=== PATIENT | female | born 1955 | race Caucasian/White ===

== ENCOUNTER 2016-12-16 18:46 | Observation (INO) ==
--- NOTE | 2016-12-16 18:50 | Emergency Department Note ---
Disposition Clinical Impression: Chest pain, HTN (hypertension), HLD (hyperlipidemia), COPD (chronic obstructive pulmonary disease), Smoker, Family history of coronary arteriosclerosis, Frail elderly, Headache Disposition: Admitted As Inpatient Condition: Good Referrals: NO,PCP [Non-Partnered Physician] - Forms: ED Satisfaction Letter General Adult HPI - General Chief complaint: ED Chest Pain Stated complaint: CP Time Seen by Provider: 12/16/16 18:48 - History of Present Illness HPI Narrative: 61-year-old female reports emergency department complaining of chest pain. It radiates into her neck and back. She has no personal history of CAD, her last stress test was 15 years ago. The patient has no history of aneurysm DVT PE or cancer. She has COPD, she has a chronic cough. She recently had a cholecystectomy about 3 months ago. There is no history of vomiting or bloody stool, the patient describes some midepigastric discomfort. The patient has had no coldness blueness numbness or weakness in arms or legs. She reports she sees Dr. Ferreira auto mechanics instructor who she stes has recommended a stress test within the month. The patient states that she has had some arrhythmia but is unable to describe the specific type. She is currently not anticoagulated. There have been no strokelike symptoms. No unilateral arm or leg weakness or numbness. There is no history of slurred speech or facial droop or confusion no seizure-like activity fever rash or trauma. The patient has a history of pneumonitis, her last episode was 18 months ago. The patient denies anxiety. She reports that she has been having intermittent pain for the last 5 days. She was brought in by EMS for further evaluation. She has a history of hypertension, hyperlipidemia, a strong family history of coronary artery disease , she is a smoker. The patient has chronic back pain, and reports to the ED stating it is time to take her usual narcotic pain medication for her chronic long-standing back pain. - Related Data Home Medications Medication Instructions Recorded Confirmed Calcium Carb, Citrate/Vit D3 1 tab PO BID 04/26/16 04/26/16 [Calcium + D3 ER Tablet] Lansoprazole [Prevacid] 30 mg PO QAM 04/26/16 04/26/16 Metoprolol [Lopressor] 25 mg PO BID 04/26/16 04/26/16 Sertraline [Zoloft] 150 mg PO QAM 04/26/16 04/26/16 Simvastatin [Zocor] 40 mg PO QPM 04/26/16 04/26/16 Albuterol Inhaler 09/27/16 Previous Rx's Medication Instructions Recorded HYDROcodone/Acet 5/325 mg [[place] 1 tab PO BID PRN #36 tablet 04/27/16 5-325 mg] Levofloxacin [Levaquin] 500 mg PO DAILY #10 tablet 09/27/16 Allergies Allergy/AdvReac Type Severity Reaction Status Date / Time No Known Allergies Allergy Verified 09/27/16 17:53 All systems ED: reviewed and negative except as stated. Past Medical History - Past Medical History Medical history: Reports: hyperlipidemia, hypertension Psychiatric history: Reports: anxiety, depression - Social History Smoking Status: Current every day smoker Smokeless Tobacco Status: No Alcohol use: Reports: none Drug use: Reports: none Physical Exam - General Limitations: no limitations General appearance: alert, in no apparent distress - Head Head exam: atraumatic, normocephalic, normal inspection - Eye Eye exam: Present: normal appearance, PERRL, EOMI - ENT ENT exam: normal exam, normal oropharynx, mucous membranes moist, TM's normal bilaterally, normal external ear exam - Neck Neck exam: Present: normal inspection, full ROM, trachea midline. Absent: tenderness, meningismus - Chest Chest inspection: Present: normal inspection, symmetric chest wall rise. Absent : tenderness - Respiratory Respiratory exam: Present: normal lung sounds bilaterally. Absent: respiratory distress, wheezes, stridor, accessory muscle use, prolonged expiratory phase - Cardiovascular Cardiovascular exam: Present: regular rate, normal rhythm, normal heart sounds - Abdominal Exam Abdominal exam: Present: soft, Non-Tender, normal bowel sounds. Absent: tenderness, distention, guarding, rebound, rigidity, pulsatile mass - Extremities Exam Extremities exam: Present: normal inspection, full ROM, normal capillary refill. Absent: tenderness, pedal edema, joint swelling, calf tenderness - Expanded Lower Extremity Exam Lower leg exam: Absent: Homans' sign Neurovascular/Tendon exam: Present: normal capillary refill. Absent: pulse deficit, motor deficit, sensory deficit, tendon deficit, extremity cold to touch , pallor - Back Exam Back exam: Present: normal inspection, full ROM. Absent: tenderness, CVA tenderness (R), CVA tenderness (L), vertebral tenderness - Neurological Exam Neurological exam: Present: alert, oriented X3, CN II-XII intact. Absent: motor sensory deficit - Psychiatric Psychiatric exam: Present: normal affect, normal mood - Skin Skin exam: Present: warm, dry, intact, normal color. Absent: rash, cyanosis, diaphoresis, erythema, pallor, mottled Course Vital Signs Temperature 98.3 F 12/16/16 18:48 Pulse Rate 65 12/16/16 18:48 Respiratory Rate 16 12/16/16 18:48 Blood Pressure 148/83 12/16/16 18:48 O2 Sat by Pulse Oximetry 96 12/16/16 18:48 Temperature 98.3 F 12/16/16 18:48 Pulse Rate 85 12/16/16 20:10 Respiratory Rate 16 12/16/16 20:10 Blood Pressure 154/80 12/16/16 20:10 O2 Sat by Pulse Oximetry 96 12/16/16 20:10 Oxygen Delivery Oxygen Delivery Room Air Medical Decision Making - MDM Narrative Medical decision making narrative: The patient is describing chest pain which radiates the back and neck. She is 61 years old, a smoker, has a history of hypertension hypercholesterolemia with a family history of coronary disease, she states that her personal auto mechanics instructor as recommended a stress test within the next month. The patient presents with acute chest pain, aspirin was ordered. She also complained of a generalized headache, no focal neurologic defects noted. The patient has no personal history of intracranial aneurysm mass or tumor. No trauma. No neurologic abnormalities on clinical examination. I do not suspect meningismus. Based on the patient's history, elevated heart score, with significant risk factors and chest pain, I thought it would be appropriate to admit the patient to the hospital. I discussed case with the hospitalist on-call who has acceptred the patient to their care. Currently pending admission. - Lab Data Lab results reviewed: Yes I reviewed the patient's lab results. Result diagrams: 12/16/16 19:05 12/16/16 19:05 Lab Results 12/16/16 12/16/16 12/16/16 Range/Units 19:05 19:05 19:05 WBC (4.3-11.1) K/mcL RBC (3.82-4.97) M/mcL Hgb (11.5-15.4) g/dL Hct (35.3-44.9) % MCV (83.0-100.0) fL MCH (28.0-33.3) pg MCHC (31.6-35.5) g/dL RDW (11.5-14.5) % Plt Count (140-400) K/mcL MPV (9.4-12.4) fL Immature Gran % (0-4) % Seg Neutrophils % % Lymphocytes % % Monocytes % % Eosinophils % % Basophils % % Neutrophils # (1.6-8.9) K/mcL Lymphocytes # (0.6-4.6) K/mcL Monocytes # (0.0-1.3) K/mcL Eosinophils # (0.0-0.6) K/mcL Basophils # (0.0-0.2) K/mcL Immature Plt Fraction (1.1-6.1) % PT 10.4 (9.4-12.1) Seconds INR 1.0 APTT 29.4 (26.0-36.0) Seconds Sodium 133 L (136-145) mEq/L Potassium 4.0 (3.5-4.5) mEq/L Chloride 99 (98-109) mEq/L Carbon Dioxide 24 (19-29) mEq/L BUN 6 L (7-20) mg/dL Creatinine 0.70 (0.57-1.11) mg/dL Est GFR ( Amer) > 60 (> 60) Est GFR (Non-Af Amer) > 60 (> 60) BUN/Creatinine Ratio 9 (6-26) Glucose 125 H (70-99) mg/dL Calculated Osmolality 275 L (280-300) Calcium 9.3 (8.6-10.8) mg/dL Total Bilirubin 0.3 (0.2-1.2) mg/dL Direct Bilirubin 0.1 (0.0-0.5) mg/dL Indirect Bilirubin 0.2 (0.0-1.2) mg/dL AST 13 (5-34) Units/L ALT 10 (0-55) Units/L Alkaline Phosphatase 59 (38-126) Units/L Troponin I (0-0.03) ng/mL C-Reactive Protein 2 (Less than 5) mg/L B-Natriuretic Peptide 59 (0-100) pg/mL Serum Total Protein 6.7 (6.0-8.3) g/dL Albumin 3.7 (3.5-5.0) g/dL Globulin 3.0 (2.4-3.5) g/dL Albumin/Globulin Ratio 1.2 (1.1-2.2) Lipase 21 (8-78) Units/L 12/16/16 12/16/16 Range/Units 19:05 19:05 WBC 10.3 (4.3-11.1) K/mcL RBC 4.83 (3.82-4.97) M/mcL Hgb 14.3 (11.5-15.4) g/dL Hct 42.6 (35.3-44.9) % MCV 88.2 (83.0-100.0) fL MCH 29.6 (28.0-33.3) pg MCHC 33.6 (31.6-35.5) g/dL RDW 12.7 (11.5-14.5) % Plt Count 216 (140-400) K/mcL MPV 10.7 (9.4-12.4) fL Immature Gran % 0.3 (0-4) % Seg Neutrophils % 75.5 % Lymphocytes % 19.0 % Monocytes % 4.2 % Eosinophils % 0.5 % Basophils % 0.5 % Neutrophils # 7.8 (1.6-8.9) K/mcL Lymphocytes # 2.0 (0.6-4.6) K/mcL Monocytes # 0.4 (0.0-1.3) K/mcL Eosinophils # 0.1 (0.0-0.6) K/mcL Basophils # 0.1 (0.0-0.2) K/mcL Immature Plt Fraction 7.7 H (1.1-6.1) % PT (9.4-12.1) Seconds INR APTT (26.0-36.0) Seconds Sodium (136-145) mEq/L Potassium (3.5-4.5) mEq/L Chloride (98-109) mEq/L Carbon Dioxide (19-29) mEq/L BUN (7-20) mg/dL Creatinine (0.57-1.11) mg/dL Est GFR ( Amer) (> 60) Est GFR (Non-Af Amer) (> 60) BUN/Creatinine Ratio (6-26) Glucose (70-99) mg/dL Calculated Osmolality (280-300) Calcium (8.6-10.8) mg/dL Total Bilirubin (0.2-1.2) mg/dL Direct Bilirubin (0.0-0.5) mg/dL Indirect Bilirubin (0.0-1.2) mg/dL AST (5-34) Units/L ALT (0-55) Units/L Alkaline Phosphatase (38-126) Units/L Troponin I 0.00 (0-0.03) ng/mL C-Reactive Protein (Less than 5) mg/L B-Natriuretic Peptide (0-100) pg/mL Serum Total Protein (6.0-8.3) g/dL Albumin (3.5-5.0) g/dL Globulin (2.4-3.5) g/dL Albumin/Globulin Ratio (1.1-2.2) Lipase (8-78) Units/L - Radiology Data Radiology results reviewed: Yes I reviewed the patient's radiology results.
[2016-12-16 19:13] LABS: Basophils # 0.1 K/mcL (0.0-0.2); Basophils % 0.5 %; Eosinophils # 0.1 K/mcL (0.0-0.6); Eosinophils % 0.5 %; Hematocrit 42.6 % (35.3-44.9); Hemoglobin 14.3 g/dL (11.5-15.4); Immature Granulocytes % 0.3 % (0-4); Immature Platelets 7.7 % (1.1-6.1); Mean Corpuscular HGB Conc 33.6 g/dL (31.6-35.5); Mean Corpuscular Hemoglobin 29.6 pg (28.0-33.3); Mean Corpuscular Volume 88.2 fL (83.0-100.0); Mean Platelet Volume 10.7 fL (9.4-12.4); Monocytes # 0.4 K/mcL (0.0-1.3); Monocytes % 4.2 %; Neutrophils # 7.8 K/mcL (1.6-8.9); Platelet Count 216 K/mcL (140-400); Red Blood Count 4.83 M/mcL (3.82-4.97); Red Cell Distribution Width 12.7 % (11.5-14.5); Segmented Neutrophils % 75.5 %
[2016-12-16 19:18] LABS: Prothrombin Time 10.4 Seconds (9.4-12.1)
[2016-12-16 19:21] LABS: Activated Partial Thrombo Time 29.4 Seconds (26.0-36.0)
[2016-12-16] MEDS ORDERED: *HR* HYDROcodone/Acet 5/325 mg TABLET PO ONE (19:24)
[2016-12-16] MEDS ORDERED: Aspirin 325 MG TABLET PO ONE (19:24)
[2016-12-16 19:26] LABS: Alanine Aminotransferase 10 Units/L (0-55); Albumin 3.7 g/dL (3.5-5.0); Albumin/Globulin Ratio 1.2 (1.1-2.2); Alkaline Phosphatase 59 Units/L (38-126); Aspartate Amino Transferase 13 Units/L (5-34); BUN/Creatinine Ratio 9 (6-26); Bilirubin,Direct 0.1 mg/dL (0.0-0.5); Bilirubin,Indirect 0.2 mg/dL (0.0-1.2); Bilirubin,Total 0.3 mg/dL (0.2-1.2); Blood Urea Nitrogen 6 mg/dL (7-20); Calcium 9.3 mg/dL (8.6-10.8); Carbon Dioxide 24 mEq/L (19-29); Chloride 99 mEq/L (98-109); Glucose 125 mg/dL (70-99); Lipase 21 Units/L (8-78); Osmolality,Calculated 275 (280-300); Sodium 133 mEq/L (136-145); Total Protein 6.7 g/dL (6.0-8.3); eGFR For African Americans > 60 (> 60); eGFR For Non-African Americans > 60 (> 60)
[2016-12-16 19:39] LABS: C-Reactive Protein 2 mg/L (Less than 5)
--- NOTE | 2016-12-17 00:08 | Internal Med History&Physical ---
Date of Encounter: 12/16/16 Time of Encounter: 23:51 Assessment and Plan (1) Chest pain Current visit: Yes Status: Acute currently reports that the chest pain has subsided. she took one nitro at home. first trop is negative, no ischemic EKG changes will trend trop, tele monitoring will order nuclear stress test for tomm morning. s/l NTG for chest pain prn. Qualifiers: Chest pain type: unspecified Qualified Code(s): R07.9 - Chest pain, unspecified (2) HTN (hypertension) Current visit: Yes Status: Acute BP stable, will continue home meds Qualifiers: Hypertension type: essential hypertension Qualified Code(s): I10 - Essential (primary) hypertension (3) HLD (hyperlipidemia) Current visit: Yes Status: Acute continue home meds. Qualifiers: Hyperlipidemia type: unspecified Qualified Code(s): E78.5 - Hyperlipidemia , unspecified (4) COPD (chronic obstructive pulmonary disease) Current visit: Yes Status: Acute not in exacerbation, continue home meds. Qualifiers: COPD type: unspecified COPD Qualified Code(s): J44.9 - Chronic obstructive pulmonary disease, unspecified (5) Smoker Current visit: Yes Status: Acute (6) Family history of coronary arteriosclerosis Current visit: Yes Status: Acute Internal Medicine - H&P: HPI Chief complaint: chest pain Admitted From: Home Plans for Post Hospital Care: Home History of present illness: Ms. Painter is a 61 year old female with c/o HTN, COPD presented with the c/o chest pain. She reports she sees Dr. Ferreira doctor of veterinary medicine who she states has recommended a stress test within the month. The patient states that she has had some arrhythmia but is unable to describe the specific type. She is currently not anticoagulated. She reports that she has been having intermittent pain for the last 5 days and is radiating to her left sided neck and jaw. She was brought in by EMS for further evaluation. She has a history of hypertension, hyperlipidemia, a strong family history of coronary artery disease , she is a smoker. The patient has chronic back pain, and reports to the ED stating it is time to take her usual narcotic pain medication for her chronic long-standing back pain. she denies ever having stress test or LHC. Past Med Surg Social Fam HX - Past Medical History Medical history: hyperlipidemia, hypertension, thyroid disease, other Psychiatric history: anxiety, depression - Past Surgical History Surgical History: cholecystectomy - Social History Smoking Status: Current every day smoker Packs per day: 0.25 Smokeless Tobacco Status: No Alcohol use: none Drug use: none - Family History Father Adopted: [place]: DAVINA Family Member Ethnicity: Non- Living Status: Age at : 62 Cause of : BRAIN CANCER Hx Family Cardiac Disorders: No Hx Family Respiratory Disorders: Yes Hx Family Cancer: Yes Hx Family GI Disorders: No Hx Family Genitourinary Disorders: No Hx Family Endocrine Disorder: No Hx Family Musculoskeletal Disorders: No Hx Family Neuromuscular Disorders: No Hx Family Neurologic Disorders: No Hx Family HEENT Disorders: No Hx Family Autoimmune Disorders: No Hx Family Reproductive Disorders: No Hx Family Psychosocial Disorders: No Hx Family Medical Disorders: No Internal Medicine - H&P: Meds Calcium Carb, Citrate/Vit D3 [Calcium + D3 ER Tablet] 1 tab PO BID 04/26/16 [ History] Metoprolol [Lopressor] 25 mg PO BID 04/26/16 [History] Sertraline [Zoloft] 150 mg PO QAM 04/26/16 [History] Simvastatin [Zocor] 40 mg PO QPM 04/26/16 [History] HYDROcodone/Acet 5/325 mg [[place] 5-325 mg] 1 tab PO BID PRN #36 tablet 04/27/16 [Rx] Albuterol Inhaler 09/27/16 [History] Gabapentin [Neurontin] 800 mg PO TID 12/16/16 [History] Omeprazole [PriLOSEC] 20 mg PO DAILY 12/16/16 [History] Allergies No Known Allergies Allergy (Verified 09/27/16 17:53) All Systems PM: A 10-system review of systems was performed and is negative for pertinent findings except as documented above in the HPI. - Constitutional Constitutional: as per HPI - EENT Eyes: as per HPI Ears: as per HPI Nose, mouth and throat: as per HPI - Breasts Breasts: as per HPI - Cardiovascular Cardiovascular ROS IM: as per HPI - Respiratory Respiratory: as per HPI - Gastrointestinal Gastrointestinal: as per HPI - Genitourinary Genitourinary: as per HPI - Constitutional Vitals: Temp Pulse Resp BP Pulse Ox 97.9 F 62 18 132/73 94 12/16/16 21:39 12/16/16 21:39 07/09/17 21:39 12/16/16 21:39 12/16/16 21:39 General appearance: Present: A&O X 3, no acute distress Exam: neck- supple chest- b/l clear, no added sounds CVS-s1 and s2, no mr/g/ abd-soft, non tender, bs are present ext- no edema neuro- alert and awake, no focal neuro deficits Internal Med - H&P Results - Labs CBC & Chem 7: 12/16/16 19:05 12/16/16 19:05
[2016-12-17] MEDS ORDERED: *HR* HYDROmorphone (PF) 1 MG/ML SYRINGE IVP PRN (00:12)
[2016-12-17] MEDS ORDERED: Naloxone 0.4 MG/ML INJ IVP PRN (00:12)
[2016-12-17] MEDS ORDERED: Ondansetron 4 MG/2 ML VIAL IVP PRN (00:12)
[2016-12-17] MEDS: *HR* HYDROcodone/Acet 5/325 mg TABLET PO PRN ×2 (00:28→10:09)
[2016-12-17] MEDS: Gabapentin 400 MG CAPSULE PO SCH ×3 (00:29→14:04)
[2016-12-17 01:35] LABS: Basophils # 0.1 K/mcL (0.0-0.2); Basophils % 0.5 %; Eosinophils % 0.2 %; Hemoglobin 13.8 g/dL (11.5-15.4); Immature Granulocytes % 0.2 % (0-4); Lymphocytes # 2.7 K/mcL (0.6-4.6); Lymphocytes % 27.8 %; Mean Corpuscular HGB Conc 34.5 g/dL (31.6-35.5); Mean Corpuscular Hemoglobin 30.7 pg (28.0-33.3); Mean Corpuscular Volume 88.9 fL (83.0-100.0); Mean Platelet Volume 10.5 fL (9.4-12.4); Monocytes # 0.5 K/mcL (0.0-1.3); Monocytes % 5.6 %; Neutrophils # 6.3 K/mcL (1.6-8.9); Platelet Count 193 K/mcL (140-400); Red Cell Distribution Width 12.7 % (11.5-14.5); Segmented Neutrophils % 65.7 %
[2016-12-17 01:48] LABS: BUN/Creatinine Ratio 10 (6-26); Blood Urea Nitrogen 7 mg/dL (7-20); Calcium 9.2 mg/dL (8.6-10.8); Carbon Dioxide 26 mEq/L (19-29); Chloride 101 mEq/L (98-109); Cholesterol 185 mg/dL (< 200); Glucose 93 mg/dL (70-99); HDL Cholesterol 39 mg/dL (40-59); Osmolality,Calculated 276 (280-300); Potassium 4.2 mEq/L (3.5-4.5); Sodium 134 mEq/L (136-145); Triglycerides 236 mg/dL (< 150); eGFR For African Americans > 60 (> 60); eGFR For Non-African Americans > 60 (> 60)
[2016-12-17 01:49] LABS: Chol/HDL Ratio 4.7 (0-4.9); LDL Cholesterol,Calculated 99 mg/dL (0-99)
[2016-12-17] MEDS ORDERED: Regadenoson 0.4 MG/5 ML SYRINGE IVP ONE (06:49)
--- NOTE | 2016-12-17 10:27 | Nuclear Medicine Stress Report ---
Regadenoson Nuclear Stress Name: Zoe Painter Date of Study: 12/17/2016 Date: 1955 Ht: 62.0 in Medical Record#: [id number] Age: 61 Wt: 156.0 lb Gender: Female Order #: [id number] Location: [facility] Room: [facility] Supervising Provider: Keith Arango CNP Reading Physician: Vincent Ferris DO, FACC, FASOK Ordering Physician: Bushra Bond CNP Primary Care Physician: Dana Goddard MD Stress Technologist: Maday Smith HEEL SHAVER, CCT Shelving Supervisor: Norma Corrales Indications: Chest Pain Impression: Pharmacologic stress ECG is non-diagnostic for ischemia due to baseline ST-T changes and submaximal HR. Gated EF = 72%. Perfusion imaging was negative for ischemia or infarct. History: Hypertension Hypercholesteremia History of Smoking Stress Test Summary: Stress Test Type: Pharmacologic Regadenoson 0.4mg/5ml given IV Baseline Information: Initial Heart Rate: 61 Blood Pressure: 134/68 Stress Information: Test Terminated Due to (primary): As per protocol Maximum Blood Pressure: 140/74 Maximum Heart Rate: 94 Percent Maximum Heart Rate Achieved: 60 Double Product: [id number] METS Reached: 1 Symptoms: NECK PAIN Nuclear Summary: SPECT myocardial perfusion imaging using Tc99m Sestamibi given intravenously was performed at rest and following cardiac stress testing. The resting images were obtained following initial dose of 10.8 mCi. Following stress an additional dose of 31.2 mCi was given at peak exercise or 30 seconds post regadenoson infusion. Medication Given: Time Medication Dose Units Route Findings: Stress Note * Resting ECG demonstrated normal sinus rhythm with nonspecific ST-T changes. * No baseline arrhythmias were noted. * Pharmacologic stress ECG is non-diagnostic for ischemia due to baseline ST-T changes and submaximal HR. * Occasional PVCs noted during stress. * Patient had no chest pain during stress. Hemodynamic responses * Normal hemodynamic responses to pharmacologic stress. Study Quality * Study quality is average. Gated EF % * Gated EF = 72%. Left Ventricle * The left ventricle is not dilated. * LVEDV = 57 mL. NORMALS * Normal wall motion. * Normal Segmental Perfusion in rest. * Normal segmental perfusion in stress. TID * No evidence of transient ischemic dilatation. TID ratio * TID ratio = 1.23. Lung Uptake * There is no evidence of increase lung uptake. Updated by Vinecnt Ferris DO, FACPetros, VIKASH, TODD on 12/17/2016 10:22:57 AM electronically signed on 12/17/2016 10:23:37 AM with status of Final
[2016-12-17 11:26] VITALS: BP 128/82
--- NOTE | 2016-12-17 12:26 | Electrocardiograph Report ---
[place] [address] Test Date: 2016-12-16 Pat Name: Zoe Painter Department: 104 Room: 3B48 Gender: F Senior Director Of Strategy: MIKEY : 1955 Requested By: Rajiv Lamb Order Number: [id number] Reading MD: José Turner MD Measurements Intervals [place] Rate: 67 P: 69 MN: 142 QRS: 38 QRSD: 73 T: 42 QT: 374 QTc: 389 Interpretive Statements SINUS RHYTHM Electronically Signed On 12-17-2016 12:25:17 EDT by José Turner MD
--- NOTE | 2016-12-17 14:40 | Discharge Summary ---
Date of Encounter: 12/17/16 Time of Encounter: 13:40 - Discharge Diagnosis (1) Chest pain Priority: Primary Status: Acute Comments: Patient reports and see departments with left neck and bilateral posterior neck pain and left jaw pain. She tells me that she did not have chest pain and does not understand why all of her cardiac testing was done. She was brought by EMS for further evaluation. She sees cardiology here at the hospital and states that they have recommended a stress test within the month. She says that she has had some arrhythmia, was unable to describe the specific type. She says if he she feels like her heart is missing some beats. She reports intermittent pain for the last 5 days. Troponins were negative, stress test was negative for acute infarct or ischemia. Her lungs are clear anteriorly and posteriorly, no wheezing, no rails , no stridor, no respiratory distress. Chest x-ray was negative for acute cardiopulmonary disease. She has no peripheral edema. I am listed as the ordering physician on the stress test, patient was admitted when I was not here, I did not order the test. I feel this pain is primarily musculoskeletal. Her neck pain increases with passive range of motion, and lower cervical vertebrae are tender to palpation. Patient's shoulders are also tender to palpation. Qualifiers: Chest pain type: unspecified Qualified Code(s): R07.9 - Chest pain, unspecified (2) HTN (hypertension) Priority: Secondary Status: Chronic Comments: Chronic. continue medications. Well-controlled in inpatient setting. Qualifiers: Hypertension type: essential hypertension Qualified Code(s): I10 - Essential (primary) hypertension (3) HLD (hyperlipidemia) Priority: Secondary Status: Chronic Comments: Continue home medications. Chronic. Qualifiers: Hyperlipidemia type: unspecified Qualified Code(s): E78.5 - Hyperlipidemia , unspecified (4) COPD (chronic obstructive pulmonary disease) Priority: Secondary Status: Chronic Comments: No acute exacerbation. Lungs are clear. Continue home medications. Qualifiers: COPD type: unspecified COPD Qualified Code(s): J44.9 - Chronic obstructive pulmonary disease, unspecified (5) Smoker Priority: Secondary Status: Chronic Comments: Patient states that she has decreased smoking from 2 packs a day to 5-6 cigarettes a day. She has agreed to take a prescription for Chantix for smoking cessation. We had a lengthy discussion about smoking cessation, lasting approximately 5 minutes. Male at bedside during discussion. - Discharge Medications Home Medications: Calcium Carb, Citrate/Vit D3 [Calcium + D3 ER Tablet] 1 tab PO BID 04/26/16 [ History] Metoprolol [Lopressor] 25 mg PO BID 04/26/16 [History] Sertraline [Zoloft] 150 mg PO QAM 04/26/16 [History] Simvastatin [Zocor] 40 mg PO QPM 04/26/16 [History] HYDROcodone/Acet 5/325 mg [[place] 5-325 mg] 1 tab PO BID PRN #36 tablet 04/27/16 [Rx] Albuterol Sulfate [Proair Hfa] 2 puff IH Q6H PRN 09/27/16 [History] Gabapentin [Neurontin] 800 mg PO TID 12/16/16 [History] Omeprazole [PriLOSEC] 20 mg PO DAILY 12/16/16 [History] Cholecalciferol (D-3) [Vitamin D] 1,000 unit PO DAILY 12/17/16 [History] Ranitidine HCl [Acid Plastic Mould Maker] 150 mg PO BID 12/17/16 [History] Tizanidine HCl 4 mg PO TID 12/17/16 [History] Allergies/Adverse Reactions: Allergies No Known Allergies Allergy (Verified 09/27/16 17:53) Procedures/tests Complete & Pending: Procedures Performed prior 72 hours Category Date Time Status NM norma perf SPECT multi [NM] Routine Exams 12/17/16 00:14 Taken SP pharm nuclear stress Routine Y 12/17/16 07:30 Completed Date of admission: 12/16/16 21:11 Primary care physician: Dana Goddard Discharging clinician: Bushra Bond Anticipated date of discharge: 12/17/16 - Patient Status Disposition: Home, Self-Care Overall status at discharge: patient is back to baseline - Discharge Instructions Follow Up With: Dana Goddard MD [Primary Care Provider] - 12/24/16 11:15 am Additional Instructions: Follow-up with primary care provider in the next 7-10 days for a follow-up appointment. Tylenol or Motrin for neck pain, heat, muscle rubs. Resume your normal home medications. Fill your Chantix prescription you are ready to stop smoking. Return to the emergency department for any other problems or concerns you may have for a few pain returns. - Diet and Activity Activity: increase activity as tolerated Diet: advance to your usual diet Hospital course: Ms. Painter is a 61 year old female with past medical history hypertension, hyperlipidemia, COPD. She presents to the emergency department on December 16 with complaint of posterior neck pain and left neck pain. She reports to me that she did not have chest pain ever, and only had left neck and posterior neck pain. Per admitting report, chest pain had resolved in the emergency room. She took one nitroglycerin at home. Her troponins were negative and her stress was negative for any acute ischemia or infarct, gated EF of 72%. Patient's neck is tender to palpation in low cervical area and T1 and trapezius area. Pain is also reproducible with passive range of motion, turning head left or right. I recommended heat and/or anti-inflammatories. She has muscle relaxers already prescribed at home that she can take. Patient denies chest pain. She denies any other cardiac history in the past. She is a smoker and does have hyperlipidemia and hypertension. Patient is being given a prescription for Chantix. Patient's chest x-ray was negative for any acute cardiopulmonary process. Her physical exam is unremarkable. Her lungs are clear, no wheezing, stridor, rales, or respiratory distress. S1-S2 is heard regular rate and rhythm, no gallops, clicks, murmurs. Abdomen is soft, nontender with bowel sounds present. She has no peripheral edema. She has normal range of motion to all joints. Vital signs and labs appeared within normal limits. Patient is ready for discharge. I requested the patient follow up with primary care the next 7-10 days. Time spent discussing smoking cessation with patient: 3 to 10 minutes - Time Spent with Patient Total time spent providing and/or coordinating discharge services: Less than 30 minutes - Constitutional Vitals: Temp Pulse Resp BP Pulse Ox 97.6 F 62 16 128/82 95 12/17/16 11:25 12/17/16 11:25 12/17/16 11:25 12/17/16 11:25 12/17/16 11:25 General appearance: Present: A&O X 3, no acute distress
== END 2016-12-17 16:24 | disposition home or self-care (01) ==
LOC: EMEROO 18:46 → 3BNU 18:46
PROVIDERS: ADMIT Internal Medicine Endocrinology, Diabetes & Metabolism; ATTEND Registered Nurse